=== PATIENT | male | born 1950 | race Caucasian/White ===

== ENCOUNTER 2017-03-28 06:48 | Inpatient (IN) | payer MEDICARE ==
[~2017-03-28] VITALS: Ht 180.3 cm; Wt 128.6 kg
[2017-03-28] VITALS (12 sets, daily range): BP systolic 142–201; BP diastolic 74–132; PULSE 94–156; RESP 18–30; TEMP 98–99; O2SAT 94–97
[~2017-03-28 06:48] MED LIST: METO100T PO; PROC60TA PO; SPIR50TA PO
[2017-03-28] MEDS ORDERED: DILTIAZEM HCL 25 MG/5 ML VIAL IV PUSH ONE (07:15)
[2017-03-28] MEDS ORDERED: SODIUM CHLORIDE 0.9% FLUSH 10 ML FLUSH IVF PRN ×2 (07:15)
--- NOTE | 2017-03-28 07:25 | PD ---
HPI Chief Complaint: Respiratory Distress Time Seen by Provider: 07:02 Travel History International Travel<30 days: No Contact w/Intl Traveler<30days: No Traveled to known affect area: No History of Present Illness HPI This is a 66-year-old male with a history of hypertension, hyperlipidemia, diabetes not as common presents today with complaints of shortness of breath times several days. Patient also reported intermittent sharp chest pain. Patient denies any chest pain today. He reports shortness of breath. He reports worse when lying flat. The patient denies any other symptoms at this time. PFSH Past Medical History Cancer: No Diabetes: Yes Hepatitis: No Hiatal Hernia: No Hypertension: Yes Kidney Stones: Yes Pancreatitis: Yes (PMD SUSPECTS PANCREATIC DAMAGE FROM HTN) Renal Failure: Yes (1/3 FUNCTION LOSS) Thyroid Disease: No ?: Not Past Surgical History Pacemaker: No Social History Alcohol Use: No Tobacco Use: No Substance Use: No Allergies-Medications (Allergen,Severity, Reaction): Coded Allergies: No Known Allergies (Verified , 02/05/11) Reported Meds & Prescriptions Reported Meds & Active Scripts Active Reported Procardia Xl (Nifedipine) 60 Mg Tabcr 60 Mg PO DAILY Lopressor (Metoprolol Tartrate) 100 Mg Tab 200 Mg PO BID Aldactone (Spironolactone) 50 Mg Tab 50 Mg PO DAILY Review of Systems Except as stated in HPI: all other systems reviewed are Neg General / Constitutional: No: Fever, Chills HENT: No: Headaches, Lightheadedness, Neck Pain Cardiovascular: Positive: Chest Pain or Discomfort (earlier intermittent sharp lasting seconds), Dyspnea on exertion, No: Palpitations (denied), Irregular Rhythm (denied), Edema Respiratory: Positive: Shortness of Breath, No: Cough, Wheezing Gastrointestinal: Positive: Nausea, No: Vomiting, Abdominal Pain Musculoskeletal: No: Weakness, Pain Neurologic: No: Weakness, Headache Physical Exam Narrative GENERAL: Well-developed well-nourished male in no acute respiratory distress. SKIN: Focused skin assessment warm/dry. HEAD: Atraumatic. Normocephalic lash atraumatic. EYES: No scleral icterus. No injection or drainage. ENT: No nasal bleeding or discharge. Mucous membranes pink and moist. NECK: Trachea midline. No JVD. Supple CARDIOVASCULAR: Irregularly irregular with a rate in the 140s. RESPIRATORY: Fine Rales heard at the bases bilaterally. Equal breath sounds in the upper airways. GASTROINTESTINAL: Abdomen soft, non-tender, nondistended. MUSCULOSKELETAL: No clubbing. No cyanosis. No edema. NEUROLOGICAL: Awake and alert. No obvious cranial nerve deficits. Motor grossly within normal limits. Normal speech. PSYCHIATRIC: Appropriate mood and affect; insight and judgment normal. Data Data Last Documented VS Vital Signs Date Time Temp Pulse Resp B/P Pulse Ox O2 Delivery O2 Flow Rate FiO2 03/28/17 07:19 96 Nasal Cannula 2 03/28/17 07:05 108 20 148/74 03/28/17 06:55 99.0 Orders Ecg Monitoring (03/28/17 07:03) Blood Pressure (03/28/17 07:03) Iv Access Insert/Monitor (03/28/17 07:03) Oximetry (03/28/17 07:03) Vital Signs (03/28/17 07:03) Diltiazem Inj (Cardizem Inj) (03/28/17 07:15) Diltiazem Inj (Cardizem Inj) (03/28/17 07:15) Sodium Chloride 0.9% Flush (Ns Flush) (03/28/17 07:15) Basic Metabolic Panel (Bmp) (03/28/17 07:03) Ckmb (Isoenzyme) Profile (03/28/17 07:03) Complete Blood Count With Diff (03/28/17 07:03) Magnesium (Mg) (03/28/17 07:03) Prothrombin Time / Inr (Pt) (03/28/17 07:03) Act Partial Throm Time (Ptt) (03/28/17 07:03) Troponin I (03/28/17 07:03) Chest, Single Ap (03/28/17 07:03) Bilateral Bp Monitoring (03/28/17 07:03) Sodium Chloride 0.9% Flush (Ns Flush) (03/28/17 07:15) Electrocardiogram (03/28/17 06:56) Protein Corrected Calcium(Pcc) (03/28/17 07:07) Admit Order (Ed Use Only) (03/28/17 08:26) Labs Laboratory Tests Test 03/28/17 07:07 White Blood Count 11.8 TH/MM3 Red Blood Count 4.72 MIL/MM3 Hemoglobin 14.0 GM/DL Hematocrit 39.9 % Mean Corpuscular Volume 84.4 FL Mean Corpuscular Hemoglobin 29.7 PG Mean Corpuscular Hemoglobin 35.2 % Concent Red Cell Distribution Width 13.7 % Platelet Count 257 TH/MM3 Mean Platelet Volume 9.0 FL Neutrophils (%) (Auto) 71.9 % Lymphocytes (%) (Auto) 17.7 % Monocytes (%) (Auto) 7.0 % Eosinophils (%) (Auto) 2.2 % Basophils (%) (Auto) 1.2 % Neutrophils # (Auto) 8.5 TH/MM3 Lymphocytes # (Auto) 2.1 TH/MM3 Monocytes # (Auto) 0.8 TH/MM3 Eosinophils # (Auto) 0.3 TH/MM3 Basophils # (Auto) 0.1 TH/MM3 CBC Comment DIFF FINAL Differential Comment Prothrombin Time 12.4 SEC Prothromb Time International 1.1 RATIO Ratio Activated Partial 23.9 SEC Thromboplast Time Sodium Level 142 MEQ/L Potassium Level 3.3 MEQ/L Chloride Level 114 MEQ/L Carbon Dioxide Level 18.1 MEQ/L Anion Gap 10 MEQ/L Blood Urea Nitrogen 21 MG/DL Creatinine 0.95 MG/DL Estimat Glomerular Filtration 79 ML/MIN Rate Random Glucose 203 MG/DL Calcium Level 6.7 MG/DL Protein Corrected Calcium 7.3 MG/DL Magnesium Level 1.6 MG/DL Total Creatine Kinase 52 U/L Troponin I 0.03 NG/ML Total Protein 5.9 GM/DL MDM Medical Decision Making Medical Screen Exam Complete: Yes Emergency Medical Condition: Yes Interpretation(s) Last 24 hours Impressions Chest X-Ray 03/28/17 0703 Signed Impressions: Service Date/Time: Tuesday, March 28, 2017 07:11 - CONCLUSION: Abnormal perihilar and lower lung zone predominant interstitial and air space opacity. Although nonspecific the distribution and appearance is suggestive of pulmonary edema. Layton Wadsworth MD Differential Diagnosis CHF versus ACS versus pneumonia versus A. fib with RVR. Narrative Course 66-year-old gentleman who presents with several day history of progressive worsening shortness of breath. The patient's noted to have new onset atrial fibrillation with rapid ventricular response. The patient was started on Cardizem drip after a bolus. His heart rate is in the low 100s at this time. He's noted to be mildly hypokalemic with a potassium of 3.3. He is also has a Protein corrected calcium of 7.3. His glucose is also elevated. The case was discussed with Dr. Samir Vela, [facility]. He is agreed to the admission. The patient be placed on a telemetry floor, preferably one that can titrate the diltiazem drip. Diagnosis Primary Impression: new onset atrial fibrillation with rapid ventricular response Additional Impressions: Hypocalcemia Hypokalemia Hyperglycemia mild congestive heart failure Admitting Information Admitting Physician Requests: Admit Mohit Kapadia MD March 28, 2017 07:24
[2017-03-28 07:36] LABS: AUTOMATED NEUTROPHIL # 8.5 TH/MM3 (1.8-7.7); BASOPHIL # 0.1 TH/MM3 (0-0.2); BASOPHIL % 1.2 % (0.0-2.0); EOSINOPHIL # 0.3 TH/MM3 (0-0.4); EOSINOPHIL % 2.2 % (0.0-4.0); HEMATOCRIT 39.9 % (39.0-51.0); HEMO FLAGS DIFF FINAL; LYMPH % 17.7 % (9.0-44.0); LYMPHOCYTE # 2.1 TH/MM3 (1.0-4.8); MEAN CELL VOLUME 84.4 FL (80.0-100.0); MEAN CORPUSCULAR HEMOGLOBIN 29.7 PG (27.0-34.0); MEAN CORPUSCULAR HGB CONC 35.2 % (32.0-36.0); NEUT % 71.9 % (16.0-70.0); PLATELET COUNT 257 TH/MM3 (150-450); RED BLOOD COUNT 4.72 MIL/MM3 (4.50-5.90); RED CELL DISTRIBUTION WIDTH 13.7 % (11.6-17.2); WHITE BLOOD COUNT 11.8 TH/MM3 (4.0-11.0)
[2017-03-28 07:46] LABS: APTT (PATIENT) 23.9 SEC (24.3-30.1); INTERNATIONAL NORMALIZED RATIO 1.1 RATIO; PROTHROMBIN TIME - PATIENT 12.4 SEC (9.8-11.6)
--- NOTE | 2017-03-28 07:46 | RADRPT ---
EXAM DATE/TIME: 03/28/2017 07:11 [facility] COMPARISON: No previous studies available for comparison. INDICATIONS : Short of breath. MEDICAL HISTORY : None. SURGICAL HISTORY : None. ENCOUNTER: Initial ACUITY: 3 days PAIN SCORE: 0/10 LOCATION: Bilateral upper chest FINDINGS: Portable AP view of the chest demonstrates a normal-sized cardiac silhouette. There are abnormal alia hilar interstitial opacities and consolidation in the lower lung zones. No definite effusion or pneum othorax is identified. Bones and soft tissues demonstrate no acute finding. CONCLUSION: Abnormal perihilar and lower lung zone predominant interstitial and air space opacity. Although nonsp ecific the distribution and appearance is suggestive of pulmonary edema. Layton Wadsworth MD on March 28, 2017 at 7:43 Board Certified Radiologist. This report was verified electronically.
[2017-03-28 08:02] LABS: BICARBONATE 18.1 MEQ/L (21.0-32.0); MAGNESIUM 1.6 MG/DL (1.5-2.5); POTASSIUM 3.3 MEQ/L (3.5-5.1)
[2017-03-28] MEDS: DILTIAZEM INJ 125 MG in SODIUM CHLORIDE 0.9% INJ 100 ML IV SCH ×2 (08:15→18:04)
[2017-03-28 08:36] LABS: CALCIUM-PROTEIN CORRECTED 7.3 MG/DL (8.5-10.1)
[2017-03-28] MEDS ORDERED: FUROSEMIDE 40 MG/4 ML VIAL IV PUSH ONE (09:15)
[2017-03-28] MEDS ORDERED: POTASSIUM CHLORIDE 20 MEQ PWD PACKET PO ONE (09:15)
[2017-03-28] MEDS ORDERED: METF500T PO (12:10)
[2017-03-28] MEDS ORDERED: AMLO5TAB2 PO (12:10)
[2017-03-28] MEDS ORDERED: ENAL20TA PO (12:10)
--- NOTE | 2017-03-28 15:21 | EKG ---
Date Performed: 03/28/2017 Time Performed: 07:26:23 PTAGE: 66 years EKG: ATRIAL FIBRILLATION WITH RAPID VENTRICULAR RESPONSE WITH ABERRANT CONDUCTION OR VENTRICULAR PREMATURE COMPLEXES INFERIOR MYOCARDIAL INFARCTION ABNORMAL ECG PREVIOUS TRACING : 03/28/2017 06.56 DOCTOR: Yung Cortes Interpretating Date/Time 03/28/2017 15:20:43
--- NOTE | 2017-03-28 15:22 | EKG ---
Date Performed: 03/28/2017 Time Performed: 06:56:46 PTAGE: 66 years EKG: ATRIAL FIBRILLATION WITH RAPID VENTRICULAR RESPONSE INFERIOR MYOCARDIAL INFARCTION ABNORMAL ECG PREVIOUS TRACING : 01/24/2017 07.50 DOCTOR: Yung Cortes Interpretating Date/Time 03/28/2017 15:21:15
--- NOTE | 2017-03-28 16:55 | HHI.HP ---
HPI Service CP Hospitalists Primary Care Physician [facility] Admission Diagnosis new afib, cp Chief Complaint: cp. sob Travel History International Travel<30 Days: No Contact w/Intl Traveler <30 Da: No Traveled to Known Affected Are: No History of Present Illness Pt is 66 yo with htn and dm who follows at the [facility]. Over past week past says he is getting an intermittent burning pain in center of chest and has been more sob. Can't get comfortable with breathing when trying to sleep at night. In ED found to have new afib/rvr. started on cardizem gtt. currently seen in [facility] and more comfortable. denies cardiac hx. Review of Systems Other chest pains sob Past Family Social History Past Medical History dm 2 htn kidney stones. Reported Medications Metformin (Metformin HCl) 500 Mg Tab 500 Mg PO DAILY With a meal Enalapril (Enalapril Maleate) 20 Mg Tab 20 Mg PO BID Amlodipine (Amlodipine Besylate) 5 Mg Tab 5 Mg PO DAILY Allergies: Coded Allergies: No Known Allergies (Verified , 02/05/11) Family History brother bypass in 50s. Social History no etoh/tob Physical Exam Vital Signs heart irreg lung diminished pantera abd s/nt ext no pitting. Vital Signs Date Time Temp Pulse Resp B/P Pulse Ox O2 Delivery O2 Flow Rate FiO2 03/28/17 16:16 94 03/28/17 16:00 98.0 96 18 144/91 96 03/28/17 13:00 110 03/28/17 12:30 98.3 97 20 148/96 97 03/28/17 07:19 96 Nasal Cannula 2 03/28/17 07:05 108 20 148/74 96 Nasal Cannula 2 03/28/17 07:05 150 30 96 Nasal Cannula 2 03/28/17 06:55 99.0 156 30 201/132 94 03/28/17 06:49 98.8 138 20 193/128 94 Room Air Laboratory Laboratory Tests Test 03/28/17 07:07 White Blood Count 11.8 Red Blood Count 4.72 Hemoglobin 14.0 Hematocrit 39.9 Mean Corpuscular Volume 84.4 Mean Corpuscular Hemoglobin 29.7 Mean Corpuscular Hemoglobin 35.2 Concent Red Cell Distribution Width 13.7 Platelet Count 257 Mean Platelet Volume 9.0 Neutrophils (%) (Auto) 71.9 Lymphocytes (%) (Auto) 17.7 Monocytes (%) (Auto) 7.0 Eosinophils (%) (Auto) 2.2 Basophils (%) (Auto) 1.2 Neutrophils # (Auto) 8.5 Lymphocytes # (Auto) 2.1 Monocytes # (Auto) 0.8 Eosinophils # (Auto) 0.3 Basophils # (Auto) 0.1 CBC Comment DIFF FINAL Differential Comment Prothrombin Time 12.4 Prothromb Time International 1.1 Ratio Activated Partial 23.9 Thromboplast Time Sodium Level 142 Potassium Level 3.3 Chloride Level 114 Carbon Dioxide Level 18.1 Anion Gap 10 Blood Urea Nitrogen 21 Creatinine 0.95 Estimat Glomerular Filtration 79 Rate Random Glucose 203 Calcium Level 6.7 Protein Corrected Calcium 7.3 Magnesium Level 1.6 Total Creatine Kinase 52 Troponin I 0.03 Total Protein 5.9 Result Diagram: 03/28/1770603/28/17706 Assessment and Plan Problem List: (1) Atrial fibrillation with RVR Status: Acute Plan: Pt is 66 yo obese, dm, htn [place] [facility] presents with cp/sob on/off over past week. Now found to have new afib/rvr. some pulmonary edema. cardizem gtt. bb and ccb po started and wean off gtt dvt prophylaxis echo tsh, hgba1c, flp, bmp in AM brenden once more stable to eval for ischemia decide on anticoagulation. (2) Chest pain Status: Acute Plan: see above (3) DM (diabetes mellitus) Status: Chronic Plan: see above (4) HTN (hypertension) Status: Chronic (5) Hypocalcemia Status: Acute Plan: monitor and replace as needed (6) Hypokalemia Status: Acute Plan: replace. Physician Certification 2 Midnight Certification Type: Admission for Inpatient Services Order for Inpatient Services 3The services are ordered in accordance with Medicare regulations or non- Medicare payer requirements, as applicable. In the case of services not specified as inpatient-only, they are appropriately provided as inpatient services in accordance with the 2-midnight benchmark. Estimated LOS (days): 3 3 days is the estimated time the patient will need to remain in the hospital, assuming treatment plan goals are met and no additional complications. Post-Hospital Plan: Home Samir Vela MD March 28, 2017 16:55
[2017-03-28] MEDS ORDERED: DEXTROSE 50% IN WATER 50 ML VIAL(D50) IV PUSH PRN (17:00)
[2017-03-28] MEDS ORDERED: cloNIDine HCL 0.1 MG TAB PO PRN (17:00)
[2017-03-28] MEDS ORDERED: GLUCAGON 1 MG/ML VIAL OTHER PRN (17:00)
[2017-03-28] MEDS: ENOXAPARIN SODIUM 40 MG/0.4 ML SYRINGE SQ SCH (17:46)
[2017-03-28] MEDS: DILTIAZEM HCL 30 MG TAB PO SCH ×2 (17:46→20:35)
[2017-03-28] MEDS ORDERED: POTASSIUM CHLORIDE 20 MEQ CONTROLLED RELEASE TAB PO ONE (20:00)
[2017-03-28] MEDS: METOPROLOL TARTRATE 50 MG TAB PO SCH (20:35)
[2017-03-28] MEDS: CALCIUM CARBONATE 1.25 GM (CA 500 MG) TAB PO SCH (20:35)
[2017-03-28] MEDS: INSULIN ASPART SUPPLEMENTAL SCALE SQ SCH (20:36)
[2017-03-29] VITALS (16 sets, daily range): BP systolic 118–157; BP diastolic 75–103; PULSE 79–107; RESP 18–20; TEMP 97.9–98.6; O2SAT 94–96
[2017-03-29] MEDS: INSULIN ASPART SUPPLEMENTAL SCALE SQ SCH ×4 (05:57→20:25)
--- NOTE | 2017-03-29 06:20 | RADRPT ---
EXAM DATE/TIME: 03/29/2017 03:57 [facility] COMPARISON: CHEST SINGLE AP, March 28, 2017, 7:11. INDICATIONS : Shortness of breath, possible pulmonary disease. MEDICAL HISTORY : None. SURGICAL HISTORY : None. ENCOUNTER: Subsequent ACUITY: 4 - 6 days PAIN SCORE: 0/10 LOCATION: Bilateral chest FINDINGS: A single view of the chest demonstrates a cardiomegaly and improving perihilar edema. Osseous struct ures are intact. CONCLUSION: Improving bilateral perihilar edema. Hans Hodges MD on March 29, 2017 at 6:18 Board Certified Radiologist. This report was verified electronically.
[2017-03-29 08:29] LABS: ANION GAP 9 MEQ/L (5-15); BICARBONATE 28.2 MEQ/L (21.0-32.0); BLOOD UREA NITROGEN 24 MG/DL (7-18); CHLORIDE 104 MEQ/L (98-107); CREATINE KINASE 49 U/L (39-308); GLOMERULAR FILTRATION RATE 63 ML/MIN (>89); HDL CHOLESTEROL 30.8 MG/DL (40.0-60.0); LDL CHOLESTEROL 99 MG/DL (0-99); MAGNESIUM 2.3 MG/DL (1.5-2.5); POTASSIUM 4.7 MEQ/L (3.5-5.1); SODIUM (NA) 141 MEQ/L (136-145)
[2017-03-29] MEDS ORDERED: PNEUMOCOCCAL POLYVALENT INJ 25 MCG/0.5 ML SYR IM ONE (09:00)
[2017-03-29] MEDS: METOPROLOL TARTRATE 50 MG TAB PO SCH ×2 (09:35→20:25)
[2017-03-29] MEDS: CALCIUM CARBONATE 1.25 GM (CA 500 MG) TAB PO SCH ×2 (09:35→20:25)
[2017-03-29] MEDS: DILTIAZEM HCL 30 MG TAB PO SCH ×4 (09:35→20:24)
--- NOTE | 2017-03-29 10:18 | HHI.PR ---
Subjective Remarks sob better. no cp Objective Vitals heart irreg lung improved air entry abd s/nt ext no edema Vital Signs Date Time Temp Pulse Resp B/P Pulse Ox O2 Delivery O2 Flow Rate FiO2 03/29/17 05:56 79 03/29/17 05:00 81 03/29/17 04:00 80 03/29/17 04:00 98.2 80 18 124/87 96 03/29/17 04:00 Nasal Cannula 2.00 03/29/17 03:00 84 03/29/17 02:00 81 03/29/17 01:00 89 03/29/17 00:00 Nasal Cannula 2.00 03/29/17 00:00 98.6 107 20 118/82 96 03/29/17 00:00 101 03/28/17 23:00 98 03/28/17 22:00 104 03/28/17 21:00 111 03/28/17 20:00 98.1 100 22 142/93 95 03/28/17 20:00 100 03/28/17 20:00 Nasal Cannula 2.00 03/28/17 16:16 94 03/28/17 16:00 98.0 96 18 144/91 96 03/28/17 13:00 110 03/28/17 12:30 98.3 97 20 148/96 97 03/28/17 03/28/17 03/29/17 15:00 23:00 07:00 Intake Total 78 ml 350 ml Output Total 1570 ml 700 ml Balance -1492 ml -350 ml Intake Oral 250 ml IV Total 78 ml 100 ml Output Urine Total 1570 ml 700 ml # Voids 3 # Bowel Movements 0 Result Diagram: 03/28/17 0707 03/29/17 0659 A/P Problem List: (1) Atrial fibrillation with RVR Status: Acute Plan: Pt is 66 yo obese, dm, htn followed at [facility] presents with cp/sob on/off over past week. Now found to have new afib/rvr. some pulmonary edema. off cardizem gtt. bb and ccb po started . titrate as needed increase activity and monitor hr control today brenden stress in AM dvt prophylaxis echo pending tsh, hgba1c, flp, bmp pending decide on anticoagulation...[facility] (2) Chest pain Status: Acute Plan: see above (3) DM (diabetes mellitus) Status: Chronic Plan: see above (4) HTN (hypertension) Status: Chronic (5) Hypocalcemia Status: Acute Plan: monitor and replace as needed (6) Hypokalemia Status: Acute Plan: replace. Samir Vela MD March 29, 2017 10:18
[2017-03-29 13:37] LABS: HEMOGLOBIN A1a 1.1 %; HEMOGLOBIN A1b 2.1 %; HEMOGLOBIN Ao 81.4 %; HEMOGLOBIN LA1C 2.5 %; HEMOGLOBIN P3 5.9 %
--- NOTE | 2017-03-29 14:56 | EC ---
Study Study Date:03/29/2017 STUDY CONCLUSIONS SUMMARY - Left ventricle: The cavity size was normal. Wall thickness was normal. Systolic function was moderately reduced. The estimated ejection fraction was in the range of 35% to 40%. Wall motion was normal; there were no regional wall motion abnormalities. The study is not technically sufficient to allow evaluation of LV diastolic function. - Aortic valve: Valve area: 2.25cm^2(VTI). Valve area: 2.14cm^2 (Vmax). - Right ventricle: Systolic pressure was increased. - Pulmonary arteries: PA peak pressure: 49mm Hg (S). If LV function is below 40, please consider prescribing an ACEI or ARB or document rationale for non-use. PROCEDURE DATA STUDY STATUS: Elective. Procedure: Transthoracic echocardiography. Image quality was good. Scanning was performed from the parasternal, apical, and subcostal acoustic windows. Study completion: The patient tolerated the procedure well. Transthoracic echocardiography. M-mode, complete 2D, complete spectral Doppler, and color Doppler. Height: Height: 71in. Weight: Weight: 285.4lb. Body mass index: BMI: 39.9kg/m^2. Body surface area: BSA: 2.46m^2. Patient status: Inpatient. CARDIAC ANATOMY LEFT VENTRICLE: The cavity size was normal. Wall thickness was normal. Systolic function was moderately reduced. The estimated ejection fraction was in the range of 35% to 40%. Wall motion was normal; there were no regional wall motion abnormalities. The study is not technically sufficient to allow evaluation of LV diastolic function. AORTIC VALVE: Trileaflet; normal thickness leaflets. Doppler: Transvalvular velocity was within the normal range. There was no stenosis. No regurgitation. Valve area: 2.25cm^2(VTI). Indexed valve area: 0.91cm^2/m^2 (VTI). Valve area: 2.14cm^2 (Vmax). Indexed valve area: 0.87cm^2/m^2 (Vmax). Mean gradient: 5mm Hg (S). AORTA: Aortic root: The aortic root was normal in size. MITRAL VALVE: Structurally normal valve. Doppler: Transvalvular velocity was within the normal range. There was no evidence for stenosis. Trace to mild regurgitation. Peak gradient: 5mm Hg (D). LEFT ATRIUM: The atrium was normal in size. RIGHT VENTRICLE: The cavity size was normal. Wall thickness was normal. Systolic pressure was increased. PULMONIC VALVE: Doppler: Transvalvular velocity was within the normal range. There was no evidence for stenosis. No regurgitation. TRICUSPID VALVE: Structurally normal valve. Doppler: Transvalvular velocity was within the normal range. Trace to mild regurgitation. PULMONARY ARTERY: The main pulmonary artery was normal-sized. Systolic pressure was within the normal range. RIGHT ATRIUM: The atrium was normal in size. PERICARDIUM: There was no pericardial effusion. SYSTEMIC VEINS: Inferior vena cava: The vessel was normal in size. Patient weight: 285.4lb _Ejection fraction:_ 65-75% _Fractional shortening:_ 32% up to 5Kg 5-11.5Kg 11.6-22.9Kg 23-45Kg 45-57Kg Aortic Root 7-13 <17 13-22 17-27 17-27 LA diam 6-13 <23 24-38 33-47 37-40 RVID 10-17 7-15 7-15 7-18 8-17 LVIDd 12-22 <32 24-38 33-47 37-40 LVPW 2-4 3-6 5-7 6-8 7-8 IVS 2-4 3-6 5-7 6-8 7-8 BASIC MEASUREMENTS ADULT NORMAL Left ventricle LV internal dimension, ED, chordal *58.8 mm 43-52 level, PLAX LV internal dimension, ES, chordal *51 mm 23-38 level, PLAX Fractional shortening, chordal level, *13 % >29 PLAX LV posterior wall thickness, ED 10.7 mm IVS/LVPW ratio, ED 0.99 <1.3 Ventricular septum Septal thickness, ED 10.6 mm Aortic valve Leaflet separation 15 mm 15-26 Aorta Root diameter, ED 35 mm Left atrium Anterior-posterior dimension 37 mm Anterior-posterior dimension index 1.5 cm/m^2 <2.2 BASIC MEASUREMENTS ADULT NORMAL Aortic valve Leaflet separation 15 mm 15-26 DOPPLER MEASUREMENTS ADULT NORMAL Main pulmonary artery Pressure, S *49 mm Hg =30 Aortic valve Peak velocity, S 147 cm/s Mean velocity, S 108 cm/s VTI, S 23.7 cm Mean gradient, S 5 mm Hg Valve area, VTI 2.25 cm^2 Valve area index, VTI 0.91 cm^2/m^2 Valve area, Vmax 2.14 cm^2 Valve area index, Vmax 0.87 cm^2/m^2 Mitral valve Peak E-wave velocity 112 cm/s Deceleration time 152 ms 150-230 Peak gradient, D 5 mm Hg Tricuspid valve Regurgitant peak velocity 286 cm/s Peak RV-RA gradient, S 33 mm Hg Maximal regurgitant velocity 286 cm/s Right ventricle RV pressure, S *50 mm Hg <30 Pulmonic valve Peak velocity, S 39.1 cm/s LEGEND: Mean values are shown as u=mean value. Asterisk (*) hartley values outside specified normal range. Prepared and signed by Nikhil Coello [id number]
[2017-03-29] MEDS: ENOXAPARIN SODIUM 40 MG/0.4 ML SYRINGE SQ SCH (17:54)
--- NOTE | 2017-03-29 22:03 | EKG ---
Date Performed: 03/28/2017 Time Performed: 11:40:15 PTAGE: 66 years EKG: ATRIAL FIBRILLATION WITH RAPID VENTRICULAR RESPONSE WITH ABERRANT CONDUCTION OR VENTRICULAR PREMATURE COMPLEXES INFERIOR MYOCARDIAL INFARCTION ABNORMAL ECG NO PREVIOUS TRACING DOCTOR: Nikhil Coello Interpretating Date/Time 03/29/2017 21:57:42
[2017-03-30] VITALS (18 sets, daily range): BP systolic 120–158; BP diastolic 88–110; PULSE 86–114; RESP 16–20; TEMP 97.4–98.6; O2SAT 93–99
[2017-03-30] MEDS: INSULIN ASPART SUPPLEMENTAL SCALE SQ SCH ×4 (05:49→21:49)
[2017-03-30] MEDS: DILTIAZEM-CD 120 MG CAP ER PO SCH (08:33)
[2017-03-30] MEDS: METOPROLOL TARTRATE 50 MG TAB PO SCH ×2 (08:33→21:50)
[2017-03-30] MEDS: CALCIUM CARBONATE 1.25 GM (CA 500 MG) TAB PO SCH ×2 (08:33→21:50)
[2017-03-30] MEDS ORDERED: REGADENOSON INJ 0.4 MG/5 ML SYR ONE (08:54)
--- NOTE | 2017-03-30 11:27 | HHI.PR ---
Subjective Remarks feels better. Objective Vitals heart irreg lung cta abd s/nt ext no edema Vital Signs Date Time Temp Pulse Resp B/P Pulse Ox O2 Delivery O2 Flow Rate FiO2 03/30/17 08:12 Nasal Cannula 2.00 03/30/17 08:12 100 03/30/17 08:12 97.8 114 18 133/99 98 03/30/17 06:07 92 03/30/17 05:00 88 03/30/17 04:00 86 03/30/17 03:56 Nasal Cannula 2.00 03/30/17 03:56 98.1 86 18 95 03/30/17 03:00 92 03/30/17 02:00 90 03/30/17 01:00 88 03/30/17 00:00 93 03/29/17 23:44 98.1 93 20 157/103 96 03/29/17 23:44 Nasal Cannula 2.00 03/29/17 23:00 95 03/29/17 21:00 98 03/29/17 20:00 98.3 82 18 148/100 95 03/29/17 20:00 82 03/29/17 20:00 Nasal Cannula 2.00 03/29/17 16:50 91 03/29/17 16:50 98.0 87 20 148/96 95 03/29/17 12:00 97.9 88 18 127/84 94 03/29/17 11:24 97.9 88 18 127/84 94 03/29/17 03/29/17 03/30/17 15:00 23:00 07:00 Intake Total 640 ml 490 ml Output Total 400 ml 850 ml Balance 240 ml -360 ml Intake Oral 640 ml 480 ml IV Total 10 ml Output Urine Total 400 ml 850 ml # Voids 2 # Bowel Movements 1 Result Diagram: 03/28/17 0707 03/29/17 0659 A/P Problem List: (1) Atrial fibrillation with RVR Status: Acute Plan: Pt is 66 yo obese, dm, htn followed [place] [facility] presents with cp/sob on/off over past week. Now found to have new afib/rvr. some pulmonary edema. echo shows ef 35-40% off cardizem gtt. bb and ccb po started .metoprolol 50mg bid. converted dilt to cardizem cd 120mg today add back lisinipril for dm/chf.systolic increase activity and monitor hr control today brenden stress today..if abnormal then consult cards for [facility] dvt prophylaxis dm needs better control and will increase metformin upon discharge decide on anticoagulation...[facility].probably coumadin. (2) Cardiomyopathy Status: Acute Plan: see above (3) Chest pain Status: Acute Plan: see above (4) DM (diabetes mellitus) Status: Chronic Plan: see above (5) HTN (hypertension) Status: Chronic (6) Hypocalcemia Status: Acute Plan: monitor and replace as needed (7) Hypokalemia Status: Acute Plan: replace. Samir Vela MD March 30, 2017 11:27
[2017-03-30] MEDS: ENOXAPARIN SODIUM 40 MG/0.4 ML SYRINGE SQ SCH (17:00)
[2017-03-30] MEDS: LISINOPRIL 5 MG TAB PO SCH (21:50)
[2017-03-31] VITALS (25 sets, daily range): BP systolic 117–138; BP diastolic 77–90; PULSE 71–102; RESP 12–18; TEMP 97.4–98.8; O2SAT 93–98
[2017-03-31] MEDS: INSULIN ASPART SUPPLEMENTAL SCALE SQ SCH ×4 (06:22→21:00)
--- NOTE | 2017-03-31 10:01 | RADRPT ---
EXAM DATE/TIME: 03/30/2017 09:00 [facility] COMPARISON: No previous studies available for comparison. INDICATIONS : Substernal chest pain with dyspnea. Atrial fibrillation. DOSE: 32.7 mCi Tc99m Myoview at stress. 30.2 mCi Tc99m Myoview at rest. 0.4 mg Lexiscan STRESS SYMPTOMS: Dyspnea, lightheaded and dry mouth. EJECTION FRACTION: 46% MEDICAL HISTORY : Hypercholesterolemia. Renal failure, chronic. Diabetes mellitus type 2. Hypertension. SURGICAL HISTORY : None. ENCOUNTER: Initial ACUITY: 1 day PAIN SCALE: 4/10 LOCATION: Substernal chest TECHNIQUE: The patient underwent pharmacologic stress with infusion of prescribed dose. Continuous ECG tracing was monitored during stress. Gated SPECT imaging was performed after stress and conventional SPECT i maging was performed at rest. The examination was performed on a SPECT/CT scanner, both attenuation and non-corrected datasets were reviewed. FINDINGS: The best perfused myocardium is the anterior lateral wall. There is minimal redistribution in the in ferior wall of borderline significance. Moderate gut activity does obscure some of the inferior wall. The ejection fraction is 46% with regional wall motion. CONCLUSION: Questionable mild stress-induced ischemia inferior wall towards the base with ejection fraction of 46 %. RISK CATEGORY: Low (<1% Annual Mortality Rate) Vic Felton MD FACR on March 31, 2017 at 9:56 Board Certified Radiologist. This report was verified electronically.
[2017-03-31] MEDS: LISINOPRIL 5 MG TAB PO SCH ×2 (10:07→21:30)
[2017-03-31] MEDS: METOPROLOL TARTRATE 50 MG TAB PO SCH ×2 (10:07→21:30)
[2017-03-31] MEDS: DILTIAZEM-CD 120 MG CAP ER PO SCH (10:07)
[2017-03-31] MEDS: CALCIUM CARBONATE 1.25 GM (CA 500 MG) TAB PO SCH ×2 (10:07→21:30)
--- NOTE | 2017-03-31 10:28 | HHI.PR ---
Subjective Remarks Pt reports some SOB this morning. Pt HR on telemetry noted to be in the 120-130's this morning. Objective Vitals Vital Signs Date Time Temp Pulse Resp B/P Pulse Ox O2 Delivery O2 Flow Rate FiO2 03/31/17 10:00 94 03/31/17 08:00 93 Nasal Cannula 2.00 03/31/17 08:00 82 03/31/17 07:00 97.6 89 18 129/84 93 03/31/17 07:00 85 03/31/17 06:19 85 03/31/17 05:00 90 03/31/17 04:17 98.1 90 14 117/77 97 03/31/17 04:17 88 03/31/17 03:16 84 03/31/17 02:07 85 03/31/17 01:00 82 03/31/17 00:11 98.8 97 12 126/89 96 03/31/17 00:00 82 03/30/17 23:15 99 03/30/17 23:10 99 03/30/17 22:42 95 03/30/17 22:42 95 03/30/17 21:30 100 03/30/17 20:52 99 Room Air 03/30/17 20:48 98.6 100 16 158/110 99 03/30/17 20:00 100 03/30/17 16:12 97.4 99 18 120/88 99 03/30/17 15:24 97 03/30/17 12:39 97.9 98 20 149/94 93 03/30/17 03/30/17 03/31/17 15:00 23:00 07:00 Intake Total 740 ml 240 ml Output Total 1100 ml Balance -360 ml 240 ml Intake Oral 740 ml 240 ml Output Urine Total 1100 ml # Voids 0 # Bowel Movements 1 Result Diagram: 03/28/17 0707 03/29/17 0659 Imaging Last Impressions Chest X-Ray 03/29/17 06 Signed Impressions: Service Date/Time: Wednesday, March 29, 2017 03:57 - CONCLUSION: Improving bilateral perihilar edema. Hans Hodges MD Objective Remarks General: NAD, AAOx3 Chest: CTA Cardiac: Irregular, tachy Abd: +BS, soft ND/TN Ext: No edema A/P Problem List: (1) Atrial fibrillation with RVR Status: Acute Plan: - Pt is 66 y/o obese male with Diabetes mellitus and HTN who follows [facility] - He presented with CP/SOB occurring on/off over past week and was found to have new A. fib/RVR and some pulmonary edema. - 2D echo shows EF 35-40%, this will need to be repeated as an outpt. - Pt was weaned off Cardizem gtt. - Currently on Cardizem CD 120mg po daily and Metoprolol 50mg Q12H - Lisinopril 5mg Q12H was added back on on 03/30/17 for DM/systolic CHF - HR this morning in the 120-130's but did receive his BB/CCB until 1000. We will monitor this and if does not improve then we will titrate up on the dosage of the Cardizem. - Lexiscan (03/31/17) --> questionable mild stress-induced ischemia inferior wall towards the base with EF 46%. - Increase activity and monitor HR control - DVT prophylaxis with Lovenox - Will discuss with CM what [facility] will cover for anticoagulation (2) Cardiomyopathy Status: Acute Plan: - See above (3) Chest pain Status: Acute Plan: - See above (4) DM (diabetes mellitus) Status: Chronic Plan: - NovoLog SSI - Hgb A1C 8.1% - DM needs better control and will increase metformin upon discharge (5) HTN (hypertension) Status: Chronic Plan: - Stable. - Monitor (6) Hypocalcemia Status: Acute Plan: - Monitor and replace as needed (7) Hypokalemia Status: Acute Plan: - Replace. Assessment and Plan Patient examined. Assessment and plan formulated with Barbara Andrade PA-C. I agree with the above. Pt's HR continues to trend high 95-105 at rest. Will give one time dose of cardizeme CD 120mg Increase daily dose of cardizem CD to 240mg daily. Continue to observe on telemetry. Anticipate d/c to home in 1-2 days Problem Qualifiers (1) DM (diabetes mellitus): Qualified Code: E11.8 - Type 2 diabetes mellitus with complication, without long-term current use of insulin Barbara Andrade March 31, 2017 10:28 Masoud Escobar DO March 31, 2017 12:12
[2017-03-31] MEDS ORDERED: DILTIAZEM-CD 120 MG CAP ER PO ONE (12:15)
[2017-03-31] MEDS: ENOXAPARIN SODIUM 40 MG/0.4 ML SYRINGE SQ SCH (17:20)
[2017-04-01] VITALS (23 sets, daily range): BP systolic 95–131; BP diastolic 48–100; PULSE 69–100; RESP 16–20; TEMP 98–98.5; O2SAT 94–100
[2017-04-01] MEDS: INSULIN ASPART SUPPLEMENTAL SCALE SQ SCH ×4 (06:00→21:00)
[2017-04-01] MEDS: DILTIAZEM-CD 240 MG CAP ER PO SCH (09:41)
[2017-04-01] MEDS: CALCIUM CARBONATE 1.25 GM (CA 500 MG) TAB PO SCH ×2 (09:41→22:31)
[2017-04-01] MEDS: METOPROLOL TARTRATE 50 MG TAB PO SCH ×2 (09:41→22:31)
[2017-04-01] MEDS: LISINOPRIL 5 MG TAB PO SCH ×2 (09:41→22:31)
--- NOTE | 2017-04-01 12:22 | HHI.PR ---
Subjective Remarks No new complaints. Objective Vitals Vital Signs Date Time Temp Pulse Resp B/P Pulse Ox O2 Delivery O2 Flow Rate FiO2 04/01/17 11:00 96 04/01/17 10:00 96 04/01/17 09:00 97 04/01/17 08:00 Nasal Cannula 2.00 98 04/01/17 08:00 88 04/01/17 08:00 98.5 88 20 117/48 98 04/01/17 06:00 78 04/01/17 05:00 78 04/01/17 04:00 86 16 117/76 100 04/01/17 04:00 69 04/01/17 03:00 70 04/01/17 02:00 88 04/01/17 01:00 93 04/01/17 00:00 98.0 90 16 95/55 98 04/01/17 00:00 88 03/31/17 23:00 82 03/31/17 22:00 88 03/31/17 21:00 94 03/31/17 20:00 97.6 99 16 130/87 98 03/31/17 20:00 93 03/31/17 19:15 Nasal Cannula 2.00 03/31/17 19:00 76 03/31/17 18:01 71 03/31/17 17:00 102 03/31/17 16:00 71 03/31/17 15:00 97.4 86 16 138/88 95 03/31/17 15:00 93 03/31/17 14:00 95 03/31/17 13:00 96 03/31/17 03/31/17 04/01/17 15:00 23:00 07:00 Intake Total 480 ml 240 ml Output Total 250 ml 800 ml 1400 ml Balance -250 ml -320 ml -1160 ml Intake Oral 480 ml 240 ml Output Urine Total 250 ml 800 ml 1400 ml # Voids 1 # Bowel Movements 1 1 Result Diagram: 03/28/17 0707 03/29/17 0659 Imaging Last Impressions Chest X-Ray 03/29/17 06 Signed Impressions: Service Date/Time: Wednesday, March 29, 2017 03:57 - CONCLUSION: Improving bilateral perihilar edema. Hans Hodges MD Objective Remarks General: NAD, AAOx3 Chest: CTA Cardiac: Irregular Abd: +BS, soft ND/TN Ext: No edema A/P Problem List: (1) Atrial fibrillation with RVR Status: Acute Plan: - Pt is 66 y/o obese male with Diabetes mellitus and HTN who follows at [facility] - He presented with CP/SOB occurring on/off over past week and was found to have new A. fib/RVR and some pulmonary edema. - 2D echo shows EF 35-40%, this will need to be repeated as an outpt. - Pt was weaned off Cardizem gtt. - Currently on Metoprolol 50mg Q12H - Pt was having some tachycardia yesterday and his Cardizem CD was increased to 240mg po daily on 04/01 - Lisinopril 5mg Q12H was added back on on 03/30/17 for DM/systolic CHF - Lexiscan (03/31/17) --> questionable mild stress-induced ischemia inferior wall towards the base with EF 46%. (2) Cardiomyopathy Status: Acute Plan: - See above (3) Chest pain Status: Acute Plan: - See above (4) DM (diabetes mellitus) Status: Chronic Plan: - NovoLog SSI - Hgb A1C 8.1% - DM needs better control and will increase metformin upon discharge (5) HTN (hypertension) Status: Chronic Plan: - Stable. - Monitor (6) Hypocalcemia Status: Acute Plan: - Monitor and replace as needed (7) Hypokalemia Status: Acute Plan: - Replace. Assessment and Plan Patient examined. Assessment and plan formulated with Barbara Andrade PA-C. I agree with the above. HR improved with increase of cardizem CD Pt started on eliquis If pt remains stable, then anticipate d/c to home 04/02/17 Problem Qualifiers (1) DM (diabetes mellitus): Qualified Code: E11.8 - Type 2 diabetes mellitus with complication, without long-term current use of insulin Barbara Andrade April 01, 2017 12:22 Masoud Escobar DO April 02, 2017 00:12
[2017-04-01] MEDS: APIXABAN 5 MG TABLET PO SCH ×2 (16:46→22:31)
[2017-04-02] VITALS (17 sets, daily range): BP systolic 115–136; BP diastolic 79–89; PULSE 62–98; RESP 20–22; TEMP 97–98.2; O2SAT 94–99
[2017-04-02] MEDS: INSULIN ASPART SUPPLEMENTAL SCALE SQ SCH ×3 (05:39→16:00)
[2017-04-02] MEDS: CALCIUM CARBONATE 1.25 GM (CA 500 MG) TAB PO SCH (08:44)
[2017-04-02] MEDS: LISINOPRIL 5 MG TAB PO SCH ×2 (08:45→17:38)
[2017-04-02] MEDS: APIXABAN 5 MG TABLET PO SCH ×2 (08:45→17:39)
[2017-04-02] MEDS: METOPROLOL TARTRATE 50 MG TAB PO SCH ×2 (08:45→17:38)
[2017-04-02] MEDS: DILTIAZEM-CD 240 MG CAP ER PO SCH (08:45)
[2017-04-02] MEDS ORDERED: METO-309 PO (16:51)
[2017-04-02] MEDS ORDERED: APIX5TAB PO (16:51)
[2017-04-02] MEDS ORDERED: LISI-519 PO (16:51)
--- NOTE | 2017-04-02 16:53 | HHI.DS ---
Discharge Summary Admission Date March 28, 2017 at 08:29 Admitting Diagnosis new afib, cp (1) Atrial fibrillation with RVR (2) Cardiomyopathy (3) Chest pain (4) DM (diabetes mellitus) (5) HTN (hypertension) (6) Hypocalcemia (7) Hypokalemia Brief History Pt is 66 yo with htn and dm who [facility]. Over past week past says he is getting an intermittent burning pain in center of chest and has been more sob. Can't get comfortable with breathing when trying to sleep at night. In ED found to have new afib/rvr. started on cardizem gtt. currently seen in [facility] and more comfortable. denies cardiac hx. CBC/BMP: 03/29/17 0659 PE at Discharge General: NAD, AAOx3 Chest: CTA Cardiac: Irregular Abd: +BS, soft ND/TN Ext: No edema Discharge Instructions New Medications: Apixaban (Eliquis) 5 Mg Tab 5 MG PO BID A. fib #62 TAB Diltiazem CD 24 HR (Cardizem CD 24 HR) 240 Mg Caper 240 MG PO DAILY A. fib #31 CAP Lisinopril (Lisinopril) 5 Mg Tab 5 MG PO Q12HR htn #30 TAB Metoprolol Tartrate (Lopressor) 50 Mg Tab 50 MG PO Q12HR A. fib #62 TAB Continued Medications: Metformin (Metformin) 500 Mg Tab 500 MG PO DAILY With a meal Blood Sugar Management #30 Ref 0 TAB Discontinued Medications: Amlodipine (Amlodipine) 5 Mg Tab 5 MG PO DAILY Blood Pressure Management #30 Ref 0 TAB Enalapril (Enalapril) 20 Mg Tab 20 MG PO BID #30 Ref 0 TAB Barbara Andrade April 02, 2017 16:53 Masoud Escobar DO April 05, 2017 09:44
[2017-04-02] MEDS ORDERED: CARD240C6 PO (16:55)
--- NOTE | 2017-04-02 17:08 | HHI.DS ---
Discharge Summary Admission Date March 28, 2017 at 08:29 Discharge Date: April 02, 2017 Admitting Diagnosis new afib, cp (1) Atrial fibrillation with RVR Diagnosis: Principal (2) Cardiomyopathy Diagnosis: Principal (3) Chest pain Diagnosis: Principal (4) DM (diabetes mellitus) Diagnosis: Secondary (5) HTN (hypertension) Diagnosis: Secondary (6) Hypocalcemia Diagnosis: Secondary (7) Hypokalemia Diagnosis: Secondary Brief History Pt is 66 yo with htn and dm who follows [facility]. Over past week past says he is getting an intermittent burning pain in center of chest and has been more sob. Can't get comfortable with breathing when trying to sleep at night. In ED found to have new afib/rvr. started on cardizem gtt. currently seen in [facility] and more comfortable. denies cardiac hx. CBC/BMP: 03/29/17 0659 Imaging Last Impressions Myocardial Perfusion Scan Nuc Med 03/30/17 0600 Signed Impressions: Service Date/Time: Thursday, March 30, 2017 09:00 - CONCLUSION: Questionable mild stress-induced ischemia inferior wall towards the base with ejection fraction of 46%%. RISK CATEGORY: Low (<1%% Annual Mortality Rate) Vic Felton MD FACR Chest X-Ray 03/29/17 0600 Signed Impressions: Service Date/Time: Wednesday, March 29, 2017 03:57 - CONCLUSION: Improving bilateral perihilar edema. Hans Hodges MD PE at Discharge General: NAD, AAOx3 Chest: CTA Cardiac: Irregular Abd: +BS, soft ND/TN Ext: No edema Hospital Course (1) Atrial fibrillation with RVR Status: Acute Plan: - Pt is 66 y/o obese male with Diabetes mellitus and HTN who follows at [facility] - He presented with CP/SOB occurring on/off over past week and was found to have new A. fib/RVR and some pulmonary edema. - 2D echo shows EF 35-40%, this will need to be repeated as an outpt. - Pt was weaned off Cardizem gtt. - Currently on Metoprolol 50mg Q12H - Pt was having some tachycardia yesterday and his Cardizem CD was increased to 240mg po daily on 04/01 - Lisinopril 5mg Q12H was added back on on 03/30/17 for DM/systolic CHF - Lexiscan (5/8/17) --> questionable mild stress-induced ischemia inferior wall towards the base with EF 46%. - on day of discharge pt's HR was stable - discharge to home - f/u with PCP in 1 week - f/u with Cardiology in 2 weeks. (2) Cardiomyopathy Status: Acute Plan: - See above (3) Chest pain Status: Acute Plan: - See above (4) DM (diabetes mellitus) Status: Chronic Plan: - NovoLog SSI - Hgb A1C 8.1% - DM needs better control and will increase metformin upon discharge (5) HTN (hypertension) Status: Chronic Plan: - Stable. - Monitor (6) Hypocalcemia Status: Acute Plan: - Monitor and replace as needed (7) Hypokalemia Status: Acute Plan: - Replace. Pt Condition on Discharge: Stable Discharge Disposition: Discharge Home Discharge Instructions DIET: Follow Instructions for: Heart Healthy Diet Activities you can perform: Regular-No Restrictions Follow up Referrals: PCP Follow-up - [address] Back New Medications: Apixaban (Eliquis) 5 Mg Tab 5 MG PO BID A. fib #62 TAB Diltiazem CD 24 HR (Cardizem CD 24 HR) 240 Mg Caper 240 MG PO DAILY a. fib #31 CAP Lisinopril (Lisinopril) 5 Mg Tab 5 MG PO Q12HR htn #30 TAB Metoprolol Tartrate (Lopressor) 50 Mg Tab 50 MG PO Q12HR A. fib #62 TAB Continued Medications: Metformin (Metformin) 500 Mg Tab 500 MG PO DAILY With a meal Blood Sugar Management #30 Ref 0 TAB Discontinued Medications: Amlodipine (Amlodipine) 5 Mg Tab 5 MG PO DAILY Blood Pressure Management #30 Ref 0 TAB Enalapril (Enalapril) 20 Mg Tab 20 MG PO BID #30 Ref 0 TAB Masoud Escobar DO April 02, 2017 17:08
--- NOTE | 2017-04-06 17:51 | PQ ---
Physician Query Response Document PATIENT: JACLYN OCASIO : 1950 ADMIT DATE: 03/28/2017 8:29 AM DISCH DATE: 04/02/2017 6:21 PM RESPONDING PROVIDER #: Eschwart QUERY TEXT: CHF Acuity and Type Congestive Heart Failure is documented in the Medical Record. Please document the type and acuity (in cludes probable or suspected) Such as: Acuity: -- Acute -- Chronic -- Acute on chronic -- Other, please specify Also please document the underlying cause of the CHF (includes probable or suspected) If you have any additional questions/comments and/or concerns, please do not hesitate to reach out to the CDI/Coding Hotline, Ext. [phone]. The patient's Clinical Indicators include: Progress Notes beginning 03/30/17 document: add back lisinipril for dm/chf.systolic ED record documents diagnosis of: mild congestive heart failure. Patient on no diuretics at home. Troponin I normal. No documentation of past medical history of CHF. H Discharge Summary documents: Over past week past says he is getting an intermittent burning pain in center of chest and has been more sob. Can't get comfortable with breathing when trying to sleep at night. Echocardiogram performed 03/29/17: Left ventricle: The cavity size was normal. Wall thickness was georgie l. Systolic function was moderately reduced. The estimated ejection fraction was in the range of 35% to 40%. Wall motion was normal; there were no regional wall motion abnormalities. The study is not te chnically sufficient to allow evaluation of LV diastolic function. Query created by: Cindy Cox on 04/03/2017 9:53 AM RESPONSE TEXT: Pt likely had some volume overload on admission due to his new onset Atrial fibrillation. I ordered an echocardiogram during pt's hospitalization, but I am unable to access the report at this time from [facility]. Electronically signed by: Masoud Escobar DO 04/06/2017 5:47 PM
== END 2017-04-02 18:21 | disposition home or self-care (01) | DRG 309 ==
LOC: NEPC 06:48 → NEDA 08:29 → HCIS 12:23
PROVIDERS: ADMIT Hospitalist; ATTEND Hospitalist
DX: I48.91 Unspecified atrial fibrillation (principal); I50.20 Unspecified systolic (congestive) heart failure; I42.9 Cardiomyopathy, unspecified; E83.51 Hypocalcemia; E11.65 Type 2 diabetes mellitus with hyperglycemia; I10 Essential (primary) hypertension; Z79.84 Long term (current) use of oral hypoglycemic drugs; Z87.442 Personal history of urinary calculi; E66.9 Obesity, unspecified; Z68.39 Body mass index [BMI] 39.0-39.9, adult; E87.6 Hypokalemia; Z23 Encounter for immunization
CPT/HCPCS: 71010; 78452; 80048; 80061; 82550; 82948; 83036; 83735; 84100; 84155; 84439; 84443; 84484; 85025; 85610; 85730; 90732; 93005; 93017; 93306; 96374; 96376; A9502; J1650; J1815; J1940; J2785

== ENCOUNTER 2017-08-02 17:58 | Emergency (ER) | payer OTHER, MEDICARE ==
[~2017-08-02] VITALS: Ht 182.9 cm; Wt 130.0 kg
[~2017-08-02 17:58] MED LIST changes: +APIX5TAB PO; +CARD240C6 PO; +LISI-519 PO; +METF500T PO; +METO-309 PO; -METO100T PO; -PROC60TA PO; -SPIR50TA PO
[2017-08-02 18:00] VITALS: BP 175/99; PULSE 88; RESP 24; TEMP 98.3; O2SAT 96
--- NOTE | 2017-08-02 18:15 | PD ---
Physical Exam Date Seen by Provider: Aug 02, 2017 Time Seen by Provider: 18:08 Data Data Last Documented VS Vital Signs Date Time Temp Pulse Resp B/P (MAP) Pulse Ox O2 Delivery O2 Flow Rate FiO2 08/02/17 18:00 98.3 88 24 175/99 (124) 96 Room Air MDM Supervised Visit with AVE: No Narrative Course 66 YO M requesting medication refill Also complains of intermittent SOB for "months." --F/C, N/V, cough. Has upcoming appointment with the ship liner. Vitals reviewed. Patient seen in triage, awaiting bed placement. Freda Phillips Aug 02, 2017 18:15
[2017-08-02] MEDS ORDERED: DILTIAZEM HCL 25 MG/5 ML VIAL IV ONE (18:30)
[2017-08-02] MEDS ORDERED: SODIUM CHLORIDE 0.9% FLUSH 10 ML FLUSH IVF PRN (18:30)
[2017-08-02] MEDS ORDERED: DILTIAZEM INJ 125 MG in SODIUM CHLORIDE 0.9% INJ 100 ML IV PRN (18:30)
[2017-08-02] MEDS ORDERED: DILTIAZEM HCL 25 MG/5 ML VIAL ONE (18:31)
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
[2017-08-02 18:56] VITALS: BP 146/82; PULSE 133; RESP 18; O2SAT 97
--- NOTE | 2017-08-02 19:06 | RADRPT ---
EXAM DATE/TIME: 08/02/2017 18:47 [facility] COMPARISON: CHEST SINGLE AP, March 29, 2017, 3:57. INDICATIONS : Chest pain. MEDICAL HISTORY : Hypercholesterolemia. Renal failure, chronic. Diabetes mellitus type 2. SURGICAL HISTORY : None. ENCOUNTER: Initial ACUITY: 1 day PAIN SCORE: 8/10 LOCATION: Bilateral chest FINDINGS: A single view of the chest demonstrates the lungs to be symmetrically aerated without evidence of mas s, infiltrate or effusion. Minimal scar versus atelectasis is seen in the left base. The cardiomedias tinal contours are unremarkable. Osseous structures are intact. CONCLUSION: Minimal scar versus atelectasis left base. Otherwise no acute process. Jack Booth MD on August 02, 2017 at 19:04 Board Certified Radiologist. This report was verified electronically.
[2017-08-02 19:18] LABS: AUTOMATED NEUTROPHIL # 6.5 TH/MM3 (1.8-7.7); BASOPHIL # 0.1 TH/MM3 (0-0.2); BASOPHIL % 0.7 % (0.0-2.0); EOSINOPHIL # 0.2 TH/MM3 (0-0.4); EOSINOPHIL % 1.6 % (0.0-4.0); HEMO FLAGS DIFF FINAL; LYMPHOCYTE # 1.8 TH/MM3 (1.0-4.8); MEAN CELL VOLUME 90.2 FL (80.0-100.0); MEAN CORPUSCULAR HEMOGLOBIN 31.4 PG (27.0-34.0); MEAN CORPUSCULAR HGB CONC 34.8 % (32.0-36.0); MONO % 8.1 % (0.0-8.0); NEUT % 70.6 % (16.0-70.0); PLATELET COUNT 260 TH/MM3 (150-450); RED BLOOD COUNT 4.55 MIL/MM3 (4.50-5.90); RED CELL DISTRIBUTION WIDTH 14.6 % (11.6-17.2); WHITE BLOOD COUNT 9.3 TH/MM3 (4.0-11.0)
[2017-08-02 19:23] LABS: APTT (PATIENT) 23.3 SEC (24.3-30.1); INTERNATIONAL NORMALIZED RATIO 1.1 RATIO; PROTHROMBIN TIME - PATIENT 12.7 SEC (9.8-11.6)
[2017-08-02 19:27] VITALS: BP 131/97; PULSE 110; RESP 22; O2SAT 98
[2017-08-02 19:33] LABS: ANION GAP 9 MEQ/L (5-15); BICARBONATE 22.7 MEQ/L (21.0-32.0); BLOOD UREA NITROGEN 23 MG/DL (7-18); CHLORIDE 110 MEQ/L (98-107); GLOMERULAR FILTRATION RATE 52 ML/MIN (>89); MAGNESIUM 1.7 MG/DL (1.5-2.5); SODIUM (NA) 142 MEQ/L (136-145)
[2017-08-02 19:37] LABS: CREATINE KINASE 376 U/L (39-308)
[2017-08-02] MEDS ORDERED: DILTIAZEM HCL 25 MG/5 ML VIAL IV PUSH ONE (19:45)
[2017-08-02] MEDS ORDERED: DILTIAZEM HCL 25 MG/5 ML VIAL IV PUSH PRN (19:45)
[2017-08-02 19:49] LABS: CKMB 3.4 NG/ML (0.5-3.6)
[2017-08-02 20:30] VITALS: BP 145/98; PULSE 95; RESP 20; O2SAT 99
[2017-08-02] MEDS ORDERED: LISI-519 PO (20:56)
[2017-08-02] MEDS ORDERED: METO-309 PO (20:56)
[2017-08-02] MEDS ORDERED: CARD240C6 PO (20:56)
[2017-08-02] MEDS ORDERED: METF500T PO (20:56)
[2017-08-02] MEDS ORDERED: METOPROLOL TARTRATE 50 MG TAB PO ONE (21:00)
[2017-08-02 21:17] VITALS: BP 165/95; PULSE 84; RESP 22; O2SAT 99
--- NOTE | 2017-08-03 09:54 | EKG ---
Date Performed: 08/02/2017 Time Performed: 18:29:37 PTAGE: 66 years EKG: ATRIAL FIBRILLATION WITH RAPID VENTRICULAR RESPONSE MARKED LEFT AXIS DEVIATION NONSPECIFIC T-WAVE ABNORMALITY ABNORMAL ECG INTERPRETATION BASED ON A DEFAULT AGE OF 40 YEARS PREVIOUS TRACING : 03/28/2017 11.40 Since prior tracing, ventricular resposne atrial fibr illation is much more rapid. DOCTOR: Shekhar Cleary Interpretating Date/Time 08/03/2017 09:53:29
== END 2017-08-02 21:21 | disposition home or self-care (01) ==
LOC: NEPE 17:58
DX: I48.91 Unspecified atrial fibrillation (principal); R94.31 Abnormal electrocardiogram [ECG] [EKG]; E11.9 Type 2 diabetes mellitus without complications; I10 Essential (primary) hypertension; N19 Unspecified kidney failure; E78.00 Pure hypercholesterolemia, unspecified; Z76.0 Encounter for issue of repeat prescription; Z79.84 Long term (current) use of oral hypoglycemic drugs; Z79.01 Long term (current) use of anticoagulants; Z87.448 Personal history of other diseases of urinary system; Z86.79 Personal history of other diseases of the circulatory system; Z87.39 Personal history of other diseases of the musculoskeletal system and connective tissue; Z87.19 Personal history of other diseases of the digestive system
CPT/HCPCS: 71010; 80048; 82550; 82552; 83735; 84484; 85025; 85610; 85730; 93005; 96365; 96375; 96376

== ENCOUNTER 2018-03-18 13:13 | Emergency (ER) | payer OTHER, MEDICARE ==
[~2018-03-18 13:13] MED LIST changes: +ATOR40TA16 PO; -CARD240C6 PO; +FURO20TA PO; -LISI-519 PO; +LOSA25TA PO
[2018-03-18 13:23] VITALS: BP 186/111; PULSE 100; RESP 20; TEMP 98.4; O2SAT 97
--- NOTE | 2018-03-18 13:55 | RADRPT ---
EXAM DATE/TIME: 03/18/2018 13:36 [facility] COMPARISON: No previous studies available for comparison. INDICATIONS : fell back into finger and twisted wrist. Patient in cast already due to fracture in first digit. MEDICAL HISTORY : Hypercholesterolemia. Renal failure, chronic. Diabetes mellitus type 2. SURGICAL HISTORY : None. ENCOUNTER: Initial ACUITY: 1 day PAIN SCORE: 0/10 LOCATION: Bilateral First digit FINDINGS: Examination of the first digit of the left hand demonstrates no evidence of fracture or dislocation. No radiopaque foreign bodies are seen. The soft tissues are intact. CONCLUSION: Unremarkable examination of the left first finger with casting material obscuring fine bony detail. Gary Sigala MD on March 18, 2018 at 13:52 Board Certified Radiologist. This report was verified electronically.
--- NOTE | 2018-03-18 13:56 | RADRPT ---
EXAM DATE/TIME: 03/18/2018 13:38 [facility] COMPARISON: No previous studies available for comparison. INDICATIONS : fell back into finger and twisted wrist. Patient in cast already due to fracture in first digit. MEDICAL HISTORY : Hypercholesterolemia. Renal failure, chronic. Diabetes mellitus type 2. SURGICAL HISTORY : None. ENCOUNTER: Initial ACUITY: 1 day PAIN SCORE: 6/10 LOCATION: Left Wrist FINDINGS: Three view examination of the left wrist demonstrates an obvious scaphoid waist fracture The joint sp aces are maintained. Bony mineralization is normal. CONCLUSION: Scaphoid waist fracture. Gary Sigala MD on March 18, 2018 at 13:53 Board Certified Radiologist. This report was verified electronically.
[2018-03-18] MEDS ORDERED: CLOP75TA PO (14:14)
[2018-03-18] MEDS ORDERED: METO1TAB43 PO (14:14)
--- NOTE | 2018-03-18 14:39 | PD ---
HPI Chief Complaint: Injury Time Seen by Provider: 14:06 Travel History International Travel<30 days: No Contact w/Intl Traveler<30days: No Traveled to known affect area: No History of Present Illness HPI Patient 59-year-old male presents emergency department for evaluation of left wrist pain. Patient is currently being treated for a thumb fracture, he states that the bone that is fractured as "a small bone at the very base of his thumb" . He does not have documentation of which bone was fractured previously. He presents emergency department a left thumb spica cast. Patient states he was helping his when his wrist was forced into supination. He states afterwards he had some wrist pain. Denies any numbness and tingling of the fingers. States symptoms are mild, started just prior to arrival, context and associated signs symptoms as above. PFSH Past Medical History Asthma: No Atrial Fibrillation: Yes Cancer: No Cardiovascular Problems: Yes High Cholesterol: Yes Chest Pain: Yes (started last week ) Congestive Heart Failure: No COPD: No Diabetes: Yes Patient Takes Glucophage: No Genitourinary: Yes Hepatitis: No Hiatal Hernia: No Hypertension: Yes Kidney Stones: Yes Musculoskeletal: Yes (padgets disease ) Neurologic: No Psychiatric: No Reproductive: No Respiratory: No Pancreatitis: Yes (PMD SUSPECTS PANCREATIC DAMAGE FROM HTN) Renal Failure: Yes (1/3 FUNCTION LOSS) Sleep Apnea: No Thyroid Disease: No Ulcer: No Influenza Vaccination: Yes Past Surgical History AICD: No Arteriovenous Shunt: No Insulin Pump: No Joint Replacement: No Pacemaker: No Social History Alcohol Use: No Tobacco Use: No Substance Use: No Allergies-Medications (Allergen,Severity, Reaction): Coded Allergies: No Known Allergies (Verified Allergy, Unknown, 12/19/17) Reported Meds & Prescriptions Reported Meds & Active Scripts Active Eliquis (Apixaban) 5 Mg Tab 5 Mg PO BID Reported Metoprolol Succinate ER 24 HR (Metoprolol Succinate) 100 Mg Tab 300 Mg PO DAILY Clopidogrel (Clopidogrel Bisulfate) 75 Mg Tab 75 Mg PO DAILY Losartan (Losartan Potassium) 25 Mg Tab 25 Mg PO DAILY Furosemide 20 Mg Tab 20 Mg PO DAILY Atorvastatin (Atorvastatin Calcium) 40 Mg Tab 40 Mg PO HS Review of Systems Except as stated in HPI: all other systems reviewed are Neg Physical Exam Narrative GENERAL: Well-nourished, well-developed patient. SKIN: Focused skin assessment warm/dry. His cast was not removed as he does not appear to have any swelling. Has minimal evidence of injury HEAD: Normocephalic. EYES: No scleral icterus. No injection or drainage. NECK: Supple, trachea midline. No JVD or lymphadenopathy. CARDIOVASCULAR: Regular rate and rhythm without murmurs, gallops, or rubs. RESPIRATORY: Breath sounds equal bilaterally. No accessory muscle use. GASTROINTESTINAL: Abdomen soft, non-tender, nondistended. MUSCULOSKELETAL: No cyanosis, or edema. Patient is full nontender range of motion of all digits in the left hand as well as right hand. Cap refill brisk. Elbow atraumatic. BACK: Nontender without obvious deformity. No CVA tenderness. Data Data Last Documented VS Vital Signs Date Time Temp Pulse Resp B/P (MAP) Pulse Ox O2 Delivery O2 Flow Rate FiO2 03/18/18 13:23 98.4 100 20 186/111 (136) 97 Orders Orders Wrist, Complete ([id number]) (03/18/18 ) Finger ([id number]) (03/18/18 ) Ed Discharge Order (03/18/18 14:40) MDM Medical Decision Making Medical Screen Exam Complete: Yes Emergency Medical Condition: Yes Differential Diagnosis Scaphoid fracture, thumb fracture, wrist fracture, radius fracture, sprain, strain peer Narrative Course Patient room to the emergency department, x-rays show a scaphoid fracture, the patient is already adequately protected. I think at this point without any evidence of swelling exterior to the casts the likelihood of any significant injury is low. I recommended that he follow-up with his orthopedic surgeon tomorrow. However at this time I do not see significant cause to remove his cast. The patient is reassured, discussed return to ED criteria. Diagnosis Primary Impression: Scaphoid fracture Disposition: 01 DISCHARGE HOME Condition: Stable Bruce Thurman MD Mar 18, 2018 14:39
== END 2018-03-18 14:48 | disposition home or self-care (01) ==
LOC: NEPD 13:13
DX: S62.002A Unspecified fracture of navicular [scaphoid] bone of left wrist, initial encounter for closed fracture (principal); X58.XXXA Exposure to other specified factors, initial encounter; I10 Essential (primary) hypertension; E78.00 Pure hypercholesterolemia, unspecified; E11.9 Type 2 diabetes mellitus without complications; I48.91 Unspecified atrial fibrillation; Z79.01 Long term (current) use of anticoagulants
CPT/HCPCS: 73110; 73140; 99283